=== PATIENT | female | born 1980 | race African-American/Black ===

== ENCOUNTER 2016-12-22 11:42 | Emergency (ER) | payer SELFPAY ==
[~2016-12-22] VITALS: Ht 152.4 cm; Wt 95.0 kg
[2016-12-22 11:44] VITALS: BP 147/77; PULSE 66; RESP 24; TEMP 98.7; O2SAT 100
[2016-12-22 12:16] LABS: BACTERIA, URINE OCC /hpf; BLOOD, URINE TRACE (NEG); COMMENT (UR) CULT NOT INDICATED; CULTURE IF INDICATED CULT NOT INDICATED; GLUCOSE,URINE NEG (NEG); KETONE, URINE NEG (NEG); MUCUS URINE FEW /lpf (OCC); NITRITE,URINE NEG (NEG); PH, URINE 6.5 (5.0-8.5); SQUAMOUS EPITHELIAL CELL URINE 6 /hpf (0-5); URINE COLOR YELLOW (YELLW/STRAW)
--- NOTE | 2016-12-22 12:30 | PD ---
HPI Chief Complaint: Video Editing Internship Problem/Complaint Time Seen by Provider: 12:20 Travel History International Travel<30 days: No Contact w/Intl Traveler<30days: No Traveled to known affect area: No History of Present Illness HPI 36-year-old female came to the emergency room with history of vaginal discharge and pelvic discomfort for 3-4 days. She says the discharge is copious and foul- smelling. She has had unprotected sex with her . Her bedside urine was positive. Patient was unaware of this . Her last menstrual cycle was the end of October. However she said it lasted only for a day or 2. No spotting. Vital signs are stable. Patient is A2. PFSH Past Medical History Narrative Medical Used over past medical, surgical, social and family history is reviewed from the nursing note. Medical History: Denies Significant Hx Tetanus Vaccination: Unknown ?: LMP: OCTOBER 2016 Past Surgical History Surgical History: No Previous Surgery Social History Alcohol Use: No Tobacco Use: No Substance Use: No Allergies-Medications (Allergen,Severity, Reaction): Coded Allergies: No Known Drug Allergies (Verified Allergy, Unknown, 12/22/16) Comments No known drug allergies. Reported Meds & Prescriptions Reported Meds & Active Scripts Active Flagyl (Metronidazole) 250 Mg Tab 250 Mg PO TID Plus Iron 29-1 mg ( Vit-Iron Carbonyl) 29 Mg Iron-1 Mg Tab 1 Tab PO DAILY Narrative Medication List of her home medications reviewed from the nursing note. Review of Systems Except as stated in HPI: all other systems reviewed are Neg Physical Exam Narrative GENERAL: Awake, alert, obese, no obvious distress SKIN: Focused skin assessment warm/dry. HEAD: Atraumatic. Normocephalic. EYES: Pupils equal and round. No scleral icterus. No injection or drainage. ENT: No nasal bleeding or discharge. Mucous membranes pink and moist. NECK: Trachea midline. No JVD. CARDIOVASCULAR: Regular rate and rhythm. No murmur appreciated. RESPIRATORY: No accessory muscle use. Clear to auscultation. Breath sounds equal bilaterally. GASTROINTESTINAL: Abdomen soft, non-tender, nondistended. Hepatic and splenic margins not palpable. : External inspection normal. Speculum exam shows copious yellowish to greenish thick discharge. Swabs were collected. MUSCULOSKELETAL: No obvious deformities. No clubbing. No cyanosis. No edema. NEUROLOGICAL: Awake and alert. No obvious cranial nerve deficits. Motor grossly within normal limits. Normal speech. PSYCHIATRIC: Appropriate mood and affect; insight and judgment normal. Data Data Last Documented VS Vital Signs Date Time Temp Pulse Resp B/P (MAP) Pulse Ox O2 Delivery O2 Flow Rate FiO2 12/22/16 13:53 147/77 (100) 12/22/16 12:10 19 12/22/16 11:44 98.7 66 100 Room Air Orders Orders Urinalysis - C+S If Indicated (12/22/16 11:47) Ed Urine Pregnancytest Poc (12/22/16 11:47) Gc And Chlamydia Pcr (12/22/16 12:40) Wet Prep Profile (12/22/16 12:40) Ed Poc Ultrasound (12/22/16 12:40) Metronidazole (Flagyl) (12/22/16 13:00) Azithromycin Powd Pack (Zithromax Powd P (12/22/16 13:00) Ceftriaxone Inj (Rocephin Inj) (12/22/16 13:00) Labs Laboratory Tests Test 12/22/16 11:54 12/22/16 12:50 Urine Color YELLOW Urine Turbidity HAZY Urine pH 6.5 Urine Specific [place] 1.020 Urine Protein TRACE mg/dL Urine Glucose (UA) NEG mg/dL Urine Ketones NEG mg/dL Urine Occult Blood TRACE Urine Nitrite NEG Urine Bilirubin NEG Urine Urobilinogen LESS THAN 2.0 MG/DL Urine Leukocyte Esterase LARGE Urine RBC 6 /hpf Urine WBC 5 /hpf Urine Squamous Epithelial Cells 6 /hpf Urine Bacteria OCC /hpf Urine Mucus FEW /lpf Microscopic Urinalysis Comment CULT NOT INDICATED Clue Cells (Wet Prep) NONE SEEN Vaginal Trichomonas (Wet Prep) PRESENT Vaginal Yeast (Wet Prep) NONE SEEN Chlamydia trachomatis DNA (PCR) DETECTED Neisseria gonorrhoeae DNA (PCR) NOT DETECTED MDM Medical Decision Making Medical Screen Exam Complete: Yes Emergency Medical Condition: Yes Medical Record Reviewed: Yes Differential Diagnosis PID, first trimester Narrative Course 1:39 PM UA was negative for any UTI. Given the speculum exam I decided to go ahead and treat her for PID. The bedside ultrasound for the was done by me. Please refer to my procedure note. Patient was treated in the department for PID as well as given prescriptions to go home with. I have recommended her to find an OB as soon as possible for this . Patient understands and is okay with the plan. Procedures Procedure Narrative Emergency Department Pelvic ultrasound was performed with patient consent. The curvilinear probe was used in the transverse and sagittal views within the suprapubic region revealing single, live intrauterine . heart rate was 189 bpm. See this measures 9 weeks and 1 day by crown-rump length. EKG Prior to Arrival: No Diagnosis Primary Impression: First trimester Additional Impression: PID (acute pelvic inflammatory disease) Referrals: Dat West MD 1 week Additional Instructions: Please take the medication prescription given to you as per the instructions. Drink lots of fluid. Get an OB for the . Called the name of the OB that has been recommended to you on the paper to make an appointment. Return to the ER if the condition worsens or any other new concerns. The cultures that have been sent if they're positive then your partner needs to be treated as well. Use condoms for intercourse over next 3 weeks. Med/Other Pt SpecificInfo: Prescription(s) given Scripts Metronidazole (Flagyl) 250 Mg Tab 250 MG PO TID for Infection, #21 TAB 0 Refills Prov: Rosalie Garrison MD 12/22/16 Vit-Iron Carbonyl ( Plus Iron 29-1 mg) 29 Mg Iron-1 Mg Tab 1 TAB PO DAILY for Nutritional Supplement, #30 TAB 0 Refills Prov: Rosalie Garrison MD 12/22/16 Disposition: 01 DISCHARGE HOME Condition: Stable Rosalie Garrison MD Dec 22, 2016 12:30
[2016-12-22] MEDS ORDERED: cefTRIAXone 250 MG VIAL IM ONE (13:00)
[2016-12-22] MEDS ORDERED: metroNIDAZOLE 500 MG TAB PO ONE (13:00)
[2016-12-22] MEDS ORDERED: AZITHROMYCIN PWD FOR SUSP 1 GM PACKET PO ONE (13:00)
[2016-12-22] MEDS ORDERED: PREN29TA PO (13:10)
[2016-12-22] MEDS ORDERED: METR250 PO (13:10)
[2016-12-22 13:53] VITALS: BP 147/77
[2016-12-22 15:35] LABS: CHLAMYDIA PCR DETECTED (NOT DETECT); NEISSERIA PCR NOT DETECTED (NOT DETECT)
== END 2016-12-22 13:54 | disposition home or self-care (01) ==
LOC: NEPD 11:42
DX: O98.311 Other infections with a predominantly sexual mode of transmission complicating pregnancy, first trimester (principal); A56.11 Chlamydial female pelvic inflammatory disease; Z3A.00 Weeks of gestation of pregnancy not specified
CPT/HCPCS: 81001; 84703; 87210; 87491; 87591; 99284; J0696